=== PATIENT | female | born 1955 ===

== ENCOUNTER 2024-04-14 07:03 | Observation (INO) | payer OTHER ==
[~2024-04-14] VITALS: Ht 144.8 cm; Wt 59.4 kg
[2024-04-14] VITALS (7 sets, daily range): BP systolic 100–110; BP diastolic 60–82; PULSE 62–81; RESP 17–20; TEMP 97.6–98.2; O2SAT 98–100
[2024-04-14] MEDS: LACTATED RINGER'S 1,000 ML ONE (08:09)
[2024-04-14] MEDS: DEXAMETHASONE SOD PHOS 10 MG/1 ML VIAL ONE (08:09)
[2024-04-14] MEDS: CELECOXIB 200 MG CAP ONE (08:09)
[2024-04-14] MEDS: GABAPENTIN 300 MG CAP ONE (08:09)
[2024-04-14] MEDS ORDERED: SODIUM CHLORIDE 0.9% 500ML 500 ML ONE (09:00)
[2024-04-14] MEDS ORDERED: Vancomycin IV 500 MG ONE (09:01)
[2024-04-14] MEDS ORDERED: TRANEXAMIC ACID 20 ML ONE (09:01)
[2024-04-14] MEDS ORDERED: SODIUM CHLORIDE 0.9% 100 ML ONE (10:10)
[2024-04-14] MEDS ORDERED: ONDANSETRON HCL INJ 2MG/ML 2ML 2 MG/ML VIAL IV PRN (11:15)
[2024-04-14] MEDS ORDERED: ACETAMINOPHEN 650 MG SUPP PR PRN (11:15)
[2024-04-14] MEDS ORDERED: DOCUSATE SODIUM 100 MG CAP PO PRN (11:15)
[2024-04-14] MEDS ORDERED: HYDROCODONE/APAP 5MG-325MG TAB PO PRN (11:15)
[2024-04-14] MEDS ORDERED: DIPHENHYDRAMINE HCL INJ 50 MG/ML VIAL IV PRN (11:15)
[2024-04-14] MEDS: FENTANYL CITRATE/PF 100MCG/2 ML INJ ONE (11:22)
[2024-04-14] MEDS: KETOROLAC TROMETHAMINE 30 MG/ML VIAL ONE (12:00)
[2024-04-14] MEDS ORDERED: FENTANYL CITRATE/PF 100MCG/2 ML INJ ONE ×2 (12:40→12:48)
[2024-04-14] MEDS ORDERED: MIDAZOLAM HCL 2 MG/2 ML VIAL ONE ×2 (12:40→12:48)
[2024-04-14] MEDS ORDERED: PHENYLEPHRINE HCL 1% 10 MG/ML VIAL ONE (12:44)
[2024-04-14] MEDS ORDERED: ONDANSETRON HCL INJ 2MG/ML 2ML 2 MG/ML VIAL ONE (12:44)
[2024-04-14] MEDS ORDERED: ROCURONIUM BROMIDE 10 MG/ML 5ML VIAL IV ONE (12:44)
[2024-04-14] MEDS ORDERED: PROPOFOL IV EMULSION 10 MG/ML 20 ML VIAL ONE (12:44)
[2024-04-14] MEDS ORDERED: LIDOCAINE HCL 2% LOCAL INJ 5 ML SDV VIAL INJ ONE (12:44)
[2024-04-14] MEDS ORDERED: FAMOTIDINE 20 MG/2 ML VIAL IV ONE (12:44)
[2024-04-14] MEDS ORDERED: SEVOFLURANE INHAL SOLN 250 ML PEN BTL ONE (12:44)
[2024-04-14] MEDS ORDERED: ACETAMINOPHEN 1000 MG/100 ML IV ONE (12:44)
[2024-04-14] MEDS ORDERED: SUGAMMADEX SODIUM 200 MG/2 ML VIAL IV ONE (12:44)
[2024-04-14] MEDS: HYDROCODONE/APAP 7.5MG-325MG 1 EA TAB PO PRN (12:55)
[2024-04-14] MEDS: SODIUM CHLORIDE 0.9% 1000ML 1,000 ML IV SCH (13:39)
[2024-04-14] MEDS: CELECOXIB 200 MG CAP PO SCH (16:32)
[2024-04-14] MEDS: CEFAZOLIN SODIUM 2 GM ONE (17:51)
[2024-04-14] MEDS: ROPIVACAINE/EPI/CLONIDINE/KET 50 ML SYRINGE INJ ONE (17:51)
[2024-04-14] MEDS: SODIUM CHLORIDE 0.9% 250ML 250 ML ONE (17:52)
[2024-04-14] MEDS: Vancomycin IV 1 GM VIAL ONE (17:52)
[2024-04-14] MEDS: Vancomycin IV 1 GM in SODIUM CHLORIDE 0.9% 250ML 250 ML IV SCH (21:08)
[2024-04-14] MEDS: ASPIRIN 325 MG TAB PO SCH (21:09)
[2024-04-14] MEDS ORDERED: ACETAMINOPHEN 325 MG TAB PO PRN (23:30)
[2024-04-15 01:01] VITALS: BP 105/61; PULSE 86; RESP 18; TEMP 97.4; O2SAT 100
[2024-04-15 05:17] VITALS: BP 92/52; PULSE 74; RESP 18; TEMP 97.8; O2SAT 98
[2024-04-15 06:45] LABS: BASOPHILS # (AUTO) 0.1 (0.0-0.1); BASOPHILS % 0.5 % (0.0-1.0); EOSINOPHILS # (AUTO) 0.1 (0.0-0.4); EOSINOPHILS % 0.5 % (0.0-6.0); HEMATOCRIT 32.5 % (34.2-44.1); LYMPHOCYTES # (AUTO) 2.3 (1.0-3.2); LYMPHOCYTES % 23.2 % (18.0-39.1); MEAN CORPUSCULAR HEMOGLOBIN 26.3 pg (28-32); MEAN CORPUSCULAR HGB CONC 30.8 g/dL (31-35); MEAN CORPUSCULAR VOLUME 85.5 fL (81-99); MONOCYTES # (AUTO) 0.9 (0.2-0.8); MONOCYTES % 8.7 % (4.4-11.3); NEUTROPHILS # (AUTO) 6.6 (2.1-6.9); NEUTROPHILS % 66.7 % (38.7-80.0); PLATELET COUNT 175 x10e3/uL (140-360); RED CELL DISTRIBUTION WIDTH 14.7 % (11.7-14.4); WHITE BLOOD COUNT 9.82 x10e3/uL (4.8-10.8)
[2024-04-15 07:07] LABS: ANION GAP 10.4 mmol/L (8-16); CALCIUM 8.7 mg/dL (8.4-10.2); CREATININE, SERUM 0.72 mg/dL (0.57-1.11); POTASSIUM 4.4 mmol/L (3.5-5.1)
[2024-04-15 07:50] VITALS: PULSE 69; RESP 18; O2SAT 92
[2024-04-15 07:54] VITALS: BP 102/59; PULSE 71; RESP 18; TEMP 97.6; O2SAT 100
[2024-04-15 08:08] VITALS: BP 102/59; PULSE 71; RESP 18; TEMP 97.6; O2SAT 100
[2024-04-15] MEDS ORDERED: ONDANSETRON HCL 4 MG ORAL DISINTEGRATING TAB PO PRN (09:00)
[2024-04-15 11:11] VITALS: BP 132/63; PULSE 69; RESP 18; TEMP 98; O2SAT 99
[2024-04-15] MEDS ORDERED: ACETAMINOPHEN 1000 MG/100 ML IV PRN (11:15)
[2024-04-15] MEDS ORDERED: ASPIRIN81 MG PO (13:27)
== END 2024-04-15 15:54 | disposition home health service (06) ==
LOC: OR 07:03 → PACU V 11:07 → MED/SURG3 12:30
PROVIDERS: ADMIT Specialist; ATTEND Specialist
DX: T84.89XA Other specified complication of internal orthopedic prosthetic devices, implants and grafts, initial encounter (principal); Z96.643 Presence of artificial hip joint, bilateral; R78.79 Finding of abnormal level of heavy metals in blood; G89.29 Other chronic pain; I10 Essential (primary) hypertension; E78.00 Pure hypercholesterolemia, unspecified; R73.03 Prediabetes; M85.80 Other specified disorders of bone density and structure, unspecified site; D64.9 Anemia, unspecified; G43.909 Migraine, unspecified, not intractable, without status migrainosus; F41.9 Anxiety disorder, unspecified; F32.A Depression, unspecified; X58.XXXA Exposure to other specified factors, initial encounter; Z01.812 Encounter for preprocedural laboratory examination; Z79.82 Long term (current) use of aspirin
CPT/HCPCS: 27132; 36415; 72170; 80048; 85025; 86850; 86900; 93005; 94799 ×2; 97110; 97116; 97161; 97530 ×2; C1776; C1889; G0378 ×2; J0690; J1100; J1885; J2795; J3010; J3370 ×3; J7030 ×2; J7040; J7050 ×3; J7121; J2003; J2250; J2371; J2405

== ENCOUNTER 2024-08-13 15:55 | Outpatient (RCR) | payer BC ==
[~2024-08-13 15:55] MED LIST: ASPIRIN81 MG PO
== END 2024-08-15 ==
LOC: PT 15:55
PROVIDERS: ATTEND Physician Assistant
DX: Z47.1 Aftercare following joint replacement surgery (principal); Z96.641 Presence of right artificial hip joint; S72.114D Nondisplaced fracture of greater trochanter of right femur, subsequent encounter for closed fracture with routine healing; M62.81 Muscle weakness (generalized); R26.2 Difficulty in walking, not elsewhere classified

== ENCOUNTER 2024-09-09 10:00 | Outpatient (RCR) | payer BC | END 2024-09-15 | LOC: PT 10:00 | PROVIDERS: ATTEND Physician Assistant | DX: Z47.1 Aftercare following joint replacement surgery (principal); Z96.641 Presence of right artificial hip joint; S72.114D Nondisplaced fracture of greater trochanter of right femur, subsequent encounter for closed fracture with routine healing; M62.81 Muscle weakness (generalized); R26.2 Difficulty in walking, not elsewhere classified ==

== ENCOUNTER 2024-10-14 16:00 | Outpatient (RCR) | payer BC | END 2024-10-15 | LOC: PT 16:00 | PROVIDERS: ATTEND Physician Assistant | DX: Z47.1 Aftercare following joint replacement surgery (principal); Z96.641 Presence of right artificial hip joint; S72.114D Nondisplaced fracture of greater trochanter of right femur, subsequent encounter for closed fracture with routine healing; M62.81 Muscle weakness (generalized); R26.2 Difficulty in walking, not elsewhere classified ==